=== PATIENT | female | born 1985 | race Caucasian/White ===

== ENCOUNTER → 2016-07-13 | Outpatient (CLI) | payer BC | LOC: MO 09:48 | DX: R07.89 Other chest pain (principal) | CPT/HCPCS: 85379 ==

== ENCOUNTER → 2016-09-17 | Outpatient (CLI) | payer BC ==
[2016-09-17 11:55] LABS: BUN/CREATININE RATIO 19 (0-10)
== END ==
LOC: MO 08:22
PROVIDERS: Nurse Practitioner
DX: R53.83 Other fatigue (principal); L65.9 Nonscarring hair loss, unspecified; M25.50 Pain in unspecified joint
CPT/HCPCS: 80053; 84439; 84443; 86039

== ENCOUNTER → 2020-04-20 | Outpatient (CLI) | payer BC, OTHER ==
[~2020-04-20] MED LIST: IBU800 MG PO; IBUPROFEN600 MG PO; MEDROXYPRO150 MG/11 IM; METHOCARBAMOL750 MG PO; NAPROSYN500 MG PO; NORCO 5-325 TA1 EACH PO; XYZAL5 MG PO
== END ==
LOC: KOH-I 04-18 09:28
DX: M54.6 Pain in thoracic spine (principal)
CPT/HCPCS: 72146